=== PATIENT | female | born 1965 | race Caucasian/White ===

== ENCOUNTER 2018-10-30 22:15 | Emergency (ER) | payer OTHER ==
[~2018-10-30] VITALS: Ht 160 cm; Wt 70.3 kg
[2018-10-30] MEDS ORDERED: XANAX 0.25 MG0.25 MG PO (22:47)
[2018-10-31 01:19] VITALS: BP 138/78
== END 2018-10-31 01:21 | disposition home or self-care (01) ==
LOC: M.ERS 22:15
DX: S91.012A Laceration without foreign body, left ankle, initial encounter (principal); Z88.1 Allergy status to other antibiotic agents; W25.XXXA Contact with sharp glass, initial encounter; Y93.89 Activity, other specified; Y92.89 Other specified places as the place of occurrence of the external cause; Y99.8 Other external cause status